=== PATIENT | male | born 1995 | race Caucasian/White ===

== ENCOUNTER 2016-09-12 06:47 | Day surgery (SDC) | payer OTHER ==
[~2016-09-12] VITALS: Ht 185.4 cm; Wt 95.3 kg
[2016-09-12 07:30] VITALS: BP 117/71; Ht 185.4 cm; Wt 95.3 kg
[2016-09-12] MEDS ORDERED: HYDROCODONE-APA1 TAB PO (10:49)
--- NOTE | 2016-09-12 14:56 | NUR ---
1200 IV DC WITH CATHER TIP INTACT
--- NOTE | 2016-09-18 08:03 | OP ---
PATIENT NAME: SYDNIE DOUGLAS MEDICAL RECORD: [id number] :89 LOCATION:D.OPS ADMISSION DATE: SURGEON: ALINA TAPIA MD DATE OF OPERATION: 09/12/2016 PREOPERATIVE DIAGNOSIS: Right ankle cyst. 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 SURGEON: Berlin Tapia MD PROCEDURE PERFORMED: Right ankle tumor excision. ANESTHESIA: TIVA with local. CONDITION: He tolerated the procedure well. Specimen was sent to pathology and was awake and transferred to recovery room in stable condition. INDICATIONS: This is a 20-year-old young man who has been having a significant swelling and cyst-like lesion pop up on his anterior lateral ankle. He can make this pop up and it is large and giving him problems. He therefore wanted to proceed with removal. We discussed options with him. He wanted to have it out. We discussed risks, benefits, and alternatives including the possibilities of its diagnosis. He understood and wished to proceed. OPERATIVE REPORT: The patient was taken to the operating room and placed in supine position. General anesthesia was obtained. I had marked the area prior where he had ____ to produce the mass. I made an incision over this area, took it down, split the capsule and found essentially about a 3.5 x 2.5-3.5 cm lesion that looked at lot like a giant cell tumor. This came out in its entirety. I sent this to pathology. We will of course wait pathology. This was down into the tibiotalar area. I copiously irrigated, then closed the capsule of the ankle with 2-0 Vicryl and then closed with 3-0 Prolene, placed in a soft dressing. He was awakened and transferred to the recovery room in stable condition, having tolerated the procedure well. TRANSINT:[id number] Voice Confirmation ID: [id number] DOCUMENT ID: [id number] ALINA TAPIA MD at 0803 CC: [id number] DICTATION DATE: 09/12/16 1156 SLURRY TANK OPERATOR: 09/12/16 1357 [facility] 09/12/16 [place] [address]
== END 2016-09-12 12:15 | disposition home or self-care (01) ==
LOC: D.OPS 06:47 → D.PAN 08:30 → D.OPS 08:30
DX: D23.71 Other benign neoplasm of skin of right lower limb, including hip (principal)

== ENCOUNTER 2018-10-22 23:19 | Observation (INO) | payer OTHER ==
[~2018-10-22] VITALS: Ht 185.4 cm; Wt 96.8 kg
[~2018-10-22 23:19] MED LIST: HYDROCODONE-APA1 TAB PO
[2018-10-22 23:57] LABS: BASOPHILS 0.4 % (0-2); HEMATOCRIT 34.4 % (42.0-54.0); HEMOGLOBIN 11.5 g/dL (13.5-17.5); IMMATURE GRANULOCYTES 0.2 % (0-5); LYMPHOCYTES 27.6 % (15-50); MCH 30.9 pg (26.0-34.0); MCHC 33.4 g/dL (31.0-37.0); MCV 92.5 fL (80.0-100.0); MONOCYTES 7.3 % (2-11); NEUTROPHILS 63.5 % (40-80); PLATELET COUNT 222 10x3/uL (130-400); RBC 3.72 10x6/uL (4.20-6.10); WBC 12.5 10x3/uL (4.8-10.8)
[2018-10-23 00:03] LABS: APTT 26.2 SECONDS (22.8-39.4)
[2018-10-23 00:06] LABS: INR 1.26 (0.85-1.17); PROTIME 15.2 SECONDS (11.6-15.0)
[2018-10-23 00:09] LABS: ALBUMIN 2.4 g/dL (3.4-5.0); ALKALINE PHOSPHATASE 45 U/L (46-116); ALT (SGPT) 19 U/L (10-68); CALC OSMOLALITY 287 mosm/kg (275-300); CARBON DIOXIDE 24.3 mmol/L (21.0-32.0); CHLORIDE - SERUM 109 mmol/L (98-107); GLUCOSE 117 mg/dL (74-106); POTASSIUM - SERUM 3.4 mmol/L (3.5-5.1); PROTEIN - SERUM 5.1 g/dL (6.4-8.2); SODIUM 142 mmol/L (136-145); UREA NITROGEN 23 mg/dL (7-18); eGFR NON AFRICAN AMERICAN > 90 mL/min (90-120)
--- NOTE | 2018-10-23 00:13 | NUR ---
OR AT BEDSIDE
[2018-10-23 00:16] LABS: CALCIUM 6.6 mg/dL (8.5-10.1)
--- NOTE | 2018-10-23 00:20 | NUR ---
CRITICAL CALCIUM OF 6.6 CALLED OR TEAM INFORMED
--- NOTE | 2018-10-23 01:33 | NUR ---
PATIENT READY TO BE TRANSFERRED TO FLOOR. REPORT CALLED TO FLOOR NURSE. DR. MACDONALD REQUESTED LAB TO BE DRAWN PRIOR TO TRANSFER. WAITING ON LAB.
--- NOTE | 2018-10-23 02:00 | NUR ---
RECEIVED PT TO FLOOR FROM RECOVERY VIA STRETCHER. VITALS SIGNS STABLE. PT DENIES PAIN. COMPLETE ASSESSMENT PER FLOW-SHEET. WILL CONTINUE TO MONITOR.
[2018-10-23 02:01] VITALS: BP 95/45
[2018-10-23 03:06] VITALS: Ht 185.4 cm; Wt 96.8 kg
[2018-10-23 04:00] VITALS: BP 96/48
[2018-10-23 09:15] VITALS: BP 107/45
--- NOTE | 2018-10-23 10:08 | NUR ---
PATIENT RECIEVED DC INSTRUCTIONS. VERBALIZED UNDERSTANDING. NO QUESTIONS AT THIS TIME. IV X 2 REMOVED WITH CATH TIPS INTACT. FAMILY AT BEDSIDE. AWAITING TRANSPORTATION FOR DC. TOLERATED SOFT DIET. CALL LIGHT WITHIN REACH.
--- NOTE | 2018-11-01 08:45 | OP ---
PATIENT NAME: SYDNIE DOUGLAS MEDICAL RECORD: [id number] :94 LOCATION:D.[id number] ADMISSION DATE:10/23/18 SURGEON: MITCHELL MACDONALD MD DATE OF OPERATION: 10/23/2018 PREOPERATIVE DIAGNOSIS: Post-tonsillectomy hemorrhage. POSTOPERATIVE DIAGNOSIS: Post-tonsillectomy hemorrhage. PROCEDURE: Control of post-tonsillectomy hemorrhage. SURGEON: Mitchell Macdonald MD ANESTHESIA: General orotracheal. BLOOD LOSS: 10 cc. COMPLICATIONS: None. DISPOSITION: Recovery stable. FINDINGS: Clot and active bleeding from the mid right tonsillar fossa. DESCRIPTION OF PROCEDURE: He was brought to the operating room and placed in supine position, sedated and intubated by anesthesia. The eyes were taped. Table was turned 90 degrees. Head drapes were applied. He was positioned for tonsillectomy. Using a headlight, a Gutierrez-Rupesh mouth gag was carefully inserted and elevated on a towel on his chest. Left tonsil fossa was cleaned and white, healing normally. The right one was full of clot. Yankauer suction was used to remove that clot, bleeding started immediately from the right mid tonsillar fossa. Suction cautery on a setting of 20 was used to stop that bleeding. Once the bleeding was controlled from the main site of bleeding and some small granulation around that, then a NG tube was passed repeatedly through the mouth into the stomach evacuating the stomach contents 5 or 6 times until nothing would return. Then, the mouth was irrigated with warm saline and Yankauer suction was used to agitate both tonsils repeatedly. A little bit of additional bleeding was cauterized at around that right mid tonsil and then with the field clean and dry, the nasopharynx was suctioned out. The nose was irrigated with saline repeatedly. The whole area was agitated again, was still clean and dry, the mouth gag was let down for a minute and re-elevated, looked again, still clean and dry, so a mouth gag was let down and removed. He was awakened, extubated, and transported to recovery in good condition. No complications. TRANSINT:[id number] Voice Confirmation ID: [id number] DOCUMENT ID: [id number] MITCHELL MACDONALD MD at 0845 CC: [id number] DICTATION DATE: 10/23/18 0053 GLUE REEL OPERATOR: 10/23/18 1026 [facility] 10/23/18 [facility] [address] [facility], [facility] [id number]
--- NOTE | 2018-11-01 08:45 | HP ---
PATIENT: SYDNIE DOUGLAS MEDICAL RECORD: [id number] ACCOUNT: [id number] LOCATION:D.[facility] : [birth year] ADMISSION DATE: 10/23/18 PCP: TORRES SANDERSON DO HISTORY AND PHYSICAL EXAMINATION HISTORY: Sydnie is 23 years old. He is about 8 days out from tonsillectomy, he had done I believe in [place]. He was lifting weights apparently today and started having some bleeding. Presented to the Emergency Room with profuse bleeding. By the time of my arrival to the Emergency Room, bleeding had really slowed down significantly. Clot in the right tonsillar fossa. He gave a history of no significant medical problems. No allergies to any medications. He is stable. They geoffrey blood for CBC and coags. IMPRESSION: Post-tonsillectomy hemorrhage. PLAN: OR for control of post-tonsillectomy hemorrhage as soon as possible. TRANSINT:[id number] Voice Confirmation ID: [id number] DOCUMENT ID: [id number] MITCHELL MACDONALD MD at 0845 CC: [id number] DICTATION DATE: 10/23/18 0054 MEDICAL INSURANCE CODING SPECIALIST: 10/23/18 0140 [facility] [place] 10/23/18 [id number] [place] [address]
== END 2018-10-23 10:13 | disposition home or self-care (01) ==
LOC: D.ER 23:19 → OBSVTIME 10-23 01:05 → D.SDCHOLD 10-23 01:05 → D.MS 10-23 01:49
PROVIDERS: Emergency Medicine; ADMIT Otolaryngology
DX: J95.831 Postprocedural hemorrhage of a respiratory system organ or structure following other procedure (principal); Y83.8 Other surgical procedures as the cause of abnormal reaction of the patient, or of later complication, without mention of misadventure at the time of the procedure

== ENCOUNTER 2019-11-16 12:06 | Emergency (ER) | payer OTHER ==
[~2019-11-16] VITALS: Ht 182.9 cm; Wt 104.5 kg
[2019-11-16 12:22] VITALS: Ht 182.9 cm; Wt 104.5 kg
[2019-11-16] MEDS ORDERED: NAPROSYN500 MG PO (13:37)
[2019-11-16 14:29] VITALS: BP 111/63
== END 2019-11-16 14:29 | disposition home or self-care (01) ==
LOC: D.ER 12:06
DX: S93.402A Sprain of unspecified ligament of left ankle, initial encounter (principal); S99.912A Unspecified injury of left ankle, initial encounter; X50.1XXA Overexertion from prolonged static or awkward postures, initial encounter; Y93.9 Activity, unspecified; Y92.9 Unspecified place or not applicable